=== PATIENT | female | born 2005 | race African-American/Black ===

== ENCOUNTER 2025-04-12 10:43 | Emergency (ER) | payer SELFPAY ==
[2025-04-12 13:07] LABS: Glucose, Urine (Dipstick) Normal (Negative); Leukocyte 100 (Negative); Protein, Urine (Dipstick) 15 mg/dl (Neg-Trace); Specific Gravity, Urine 1.010 (1.005-1.030)
[2025-04-12 13:15] LABS: Bacteria/HPF 2+ HPF (None Seen); CAUTI Indications for Culture Pregnancy
[2025-04-12 13:17] LABS: Urine Culture Reflex Yes Yes
[2025-04-13 11:53] LABS: Chlam.trachomatis by PCR,Urine Not Detected (NotDetected); GC N.gonorrhoeae PCR,UrineVOID Not Detected (NotDetected)
== END 2025-04-12 13:40 | disposition home or self-care (01) ==
LOC: CSHERS 10:43
DX: O34.81 Maternal care for other abnormalities of pelvic organs, first trimester (principal); N83.201 Unspecified ovarian cyst, right side; O23.91 Unspecified genitourinary tract infection in pregnancy, first trimester; R82.71 Bacteriuria; O99.891 Other specified diseases and conditions complicating pregnancy; R10.2 Pelvic and perineal pain; O46.91 Antepartum hemorrhage, unspecified, first trimester; Z3A.01 Less than 8 weeks gestation of pregnancy
CPT/HCPCS: 36415; 76801; 81001; 84702; 87077; 87086; 87491; 87591; 93976